=== PATIENT | female | born 1990 | race Caucasian/White ===

== ENCOUNTER 2019-03-07 13:30 | Inpatient (IN) | payer OTHER ==
[~2019-03-07] VITALS: Ht 157.5 cm; Wt 56.7 kg
[2019-03-22] MEDS ORDERED: PRENATAL TABLE1 EAC1 PO (12:21)
[2019-03-22] MEDS ORDERED: IRON325 MG PO (12:21)
[2019-03-22] MEDS ORDERED: ASA-EC81 MG PO (12:22)
[2019-03-22] MEDS ORDERED: FOLIC ACID1 MG PO (12:22)
== END 2019-03-25 17:04 | disposition home or self-care (01) | DRG 788 ==
LOC: EDSTATUS 13:30 → ADM 13:30 → OB/GYN 03-22 06:31 → LDR 03-22 06:31 → O/R 03-22 21:36 → OB/GYN 03-23 00:23 → EDBD 03-26 13:30 → OB/GYN 03-26 13:30
PROVIDERS: ADMIT Obstetrics & Gynecology
PROC: 4A0HXFZ Measurement of Products of Conception, Cardiac Rhythm, External Approach (ICD-10-PCS; 2019-03-22)
PROC: 10D00Z1 Extraction of Products of Conception, Low, Open Approach (ICD-10-PCS; principal; 2019-03-22 20:00)
DX: O62.1 Secondary uterine inertia (principal); Z3A.39 39 weeks gestation of pregnancy; Z37.0 Single live birth